=== PATIENT | male | born 1955 | race Caucasian/White ===

== ENCOUNTER → 2017-07-03 | Outpatient (CLI) | payer OTHER ==
[~2017-07-03] VITALS: Ht 180.3 cm; Wt 103.4 kg
[~2017-07-03] MED LIST: ATOR20TA50 PO; CLOP75TA41 PO; LIS10T PO
== END | disposition home or self-care (01) ==
LOC: Rad HDHVI 07:45
PROVIDERS: ATTEND Internal Medicine Cardiovascular Disease
DX: I25.119 Atherosclerotic heart disease of native coronary artery with unspecified angina pectoris (principal); R06.01 Orthopnea; I10 Essential (primary) hypertension; E78.00 Pure hypercholesterolemia, unspecified; I25.2 Old myocardial infarction; Z82.49 Family history of ischemic heart disease and other diseases of the circulatory system
CPT/HCPCS: 93306

== ENCOUNTER → 2018-09-22 | Outpatient (CLI) | payer OTHER ==
[~2018-09-22] VITALS: Ht 180.3 cm; Wt 102.1 kg
[~2018-09-22] MED LIST changes: +B-COCAP36 OR; +CHOL500023 PO; +CYAN50008 PO; +GLUC500T48 PO; +MAGN500T17 PO; +[UNRECOGNIZED DRUG - CODE] PO
== END | disposition home or self-care (01) ==
LOC: Rad HDHVI 07:54
PROVIDERS: ATTEND Internal Medicine
DX: I08.1 Rheumatic disorders of both mitral and tricuspid valves (principal); I10 Essential (primary) hypertension; E78.5 Hyperlipidemia, unspecified; K40.90 Unilateral inguinal hernia, without obstruction or gangrene, not specified as recurrent; I20.9 Angina pectoris, unspecified; Z86.79 Personal history of other diseases of the circulatory system
CPT/HCPCS: 78452; 93017; 93306; 96374; A9500

== ENCOUNTER → 2019-11-03 | Outpatient (CLI) | payer OTHER ==
[2019-11-03 09:40] LABS: Urine WBC None Seen /hpf (0 - 3)
[2019-11-03 09:43] LABS: Basophils # (auto) 0.1 uL; Basophils % (auto) 1.1 % (0.0-2.0); Eosinophils # (auto) 0.2 uL; Hemoglobin 15.2 g/dL (13.5-17.5); Lymphocytes # (auto) 2.1 uL; Lymphocytes % (auto) 32.8 % (10.0-50.0); Mean Corpuscular Hemoglobin 28.1 pg (28.0-32.0); Mean Corpuscular Hgb Conc. 33.8 g/dL (32.0-36.0); Mean Corpuscular Volume 83.2 fL (80.0-100.0); Monocytes # (auto) 0.4 uL; Neutrophils # (auto) 3.6 uL; Neutrophils % (auto) 56.1 % (37.0-80.0); Nucleated Red Blood Cells % 0.2 %; Platelet Count (auto) 310 10^3/uL (140-450); Red Blood Cells 5.41 10^6/uL (4.5-5.90); White Blood Cell 6.5 10^3/uL (4.4-10.8)
[2019-11-03 09:49] LABS: Urine Bacteria NONE SEEN /hpf (None Seen); Urine Blood Negative /uL (Negative); Urine Mucus FEW (None Seen)
[2019-11-03 10:08] LABS: Calcium 9.2 mg/dL (8.5-10.1); Potassium 4.2 mmol/L (3.5-5.1)
[2019-11-03 10:14] LABS: BUN/Creatinine Ratio 11.5; Bilirubin, Total 0.4 mg/dL (0.2-1.0); Total Protein 7.7 g/dL (6.4-8.2)
[2019-11-03 10:56] LABS: Prostate Specific Antigen 1.03 ng/mL (0.0-4.0)
== END | disposition home or self-care (01) ==
LOC: LAB 09:24
PROVIDERS: ATTEND Internal Medicine
DX: E11.9 Type 2 diabetes mellitus without complications (principal); I11.0 Hypertensive heart disease with heart failure; I50.9 Heart failure, unspecified; E78.5 Hyperlipidemia, unspecified; Z21 Asymptomatic human immunodeficiency virus [HIV] infection status
CPT/HCPCS: 36415; 80053; 80061; 81001; 82043; 82306; 82607; 83036; 84153; 85025

== ENCOUNTER → 2019-11-11 | Outpatient (CLI) | payer OTHER | END | disposition home or self-care (01) | LOC: XY 08:54 | PROVIDERS: ATTEND Internal Medicine | DX: I50.9 Heart failure, unspecified (principal) | CPT/HCPCS: 93886 ==

== ENCOUNTER → 2019-12-01 | Outpatient (CLI) | payer OTHER | END | disposition home or self-care (01) | LOC: XYW 07:44 | PROVIDERS: ATTEND Internal Medicine | DX: I51.7 Cardiomegaly (principal); I50.9 Heart failure, unspecified | CPT/HCPCS: 93306 ==

== ENCOUNTER → 2019-12-06 | Day surgery (SDC) | payer OTHER ==
[2019-12-03 10:29] LABS: Basophils # (auto) 0.1 uL; Basophils % (auto) 0.9 % (0.0-2.0); Eosinophils # (auto) 0.1 uL; Eosinophils % (auto) 2.2 % (0.0-7.0); Hematocrit 44.2 % (41.0-53.0); Hemoglobin 14.9 g/dL (13.5-17.5); Lymphocytes # (auto) 2.1 uL; Lymphocytes % (auto) 33.5 % (10.0-50.0); Mean Corpuscular Hemoglobin 28.4 pg (28.0-32.0); Mean Corpuscular Hgb Conc. 33.8 g/dL (32.0-36.0); Monocytes # (auto) 0.4 uL; Monocytes % (auto) 6.7 % (0.0-12.0); Neutrophils # (auto) 3.6 uL; Neutrophils % (auto) 56.7 % (37.0-80.0); Nucleated Red Blood Cells % 0.1 %; Platelet Count (auto) 276 10^3/uL (140-450); Red Blood Cells 5.26 10^6/uL (4.5-5.90); Red Cell Distribution Width 13.7 % (11.8-14.3); White Blood Cell 6.4 10^3/uL (4.4-10.8)
[2019-12-03 10:40] LABS: INR 1.07 (0.9-1.15); Partial Thromboplastin Time 25.6 sec (23.64-32.05)
[~2019-12-06] VITALS: Ht 180.3 cm; Wt 108.9 kg
[~2019-12-06] MED LIST changes: -CYAN50008 PO; +SODIUM CHLORIDE LOCK 10 ML ONE; -[UNRECOGNIZED DRUG - CODE] PO; +diphenhdrAMINE HCL 50 MG/1 ML VL ONE
[2019-12-06] MEDS: MIDAZOLAM HCL 5 MG/ML-1ML VIAL ONE ×2 (10:07→10:10)
[2019-12-06] MEDS: fentaNYL CITRATE 100 MCG/2 ML VL ONE ×2 (10:07→10:10)
[2019-12-06 10:36] VITALS: BP 127/72
== END | disposition home or self-care (01) ==
LOC: GI 08:23
PROVIDERS: ATTEND Internal Medicine Gastroenterology
DX: Z12.11 Encounter for screening for malignant neoplasm of colon (principal); K57.30 Diverticulosis of large intestine without perforation or abscess without bleeding; E66.9 Obesity, unspecified; Z79.01 Long term (current) use of anticoagulants; Z95.818 Presence of other cardiac implants and grafts; Z79.899 Other long term (current) drug therapy; Z98.890 Other specified postprocedural states; Z79.82 Long term (current) use of aspirin; Z87.891 Personal history of nicotine dependence; Z68.33 Body mass index [BMI] 33.0-33.9, adult
CPT/HCPCS: 36415; 45378; 85025; 85610; 85730; J1200; J2250; J3010; J7030; 99152

== ENCOUNTER → 2020-02-18 | Outpatient (CLI) | payer OTHER ==
[~2020-02-18] VITALS: Ht 180.3 cm; Wt 111.1 kg
[~2020-02-18] MED LIST changes: -SODIUM CHLORIDE LOCK 10 ML ONE; -diphenhdrAMINE HCL 50 MG/1 ML VL ONE
== END | disposition home or self-care (01) ==
LOC: Rad HDHVI 07:50
PROVIDERS: ATTEND Internal Medicine
DX: I10 Essential (primary) hypertension (principal); R07.9 Chest pain, unspecified; E78.5 Hyperlipidemia, unspecified; Z95.5 Presence of coronary angioplasty implant and graft
CPT/HCPCS: 78452; 93017; 96374; A9500

== ENCOUNTER → 2020-02-29 | Outpatient (CLI) | payer OTHER ==
[2020-02-29 10:33] LABS: Urine WBC None Seen /hpf (0 - 3)
[2020-02-29 10:36] LABS: Basophils # (auto) 0 10 ^3/uL (0-0.2); Basophils % (auto) 0.5 % (0.0-2.0); Eosinophils # (auto) 0.2 10 ^3/uL (0-0.8); Eosinophils % (auto) 2.7 % (0.0-7.0); Hemoglobin 15.4 g/dL (13.5-17.5); Lymphocytes # (auto) 2.1 10 ^3/uL (0.4-5.4); Lymphocytes % (auto) 28.6 % (10.0-50.0); Mean Corpuscular Hemoglobin 28.2 pg (28.0-32.0); Mean Corpuscular Hgb Conc. 33.5 g/dL (32.0-36.0); Mean Corpuscular Volume 84.2 fL (80.0-100.0); Monocytes # (auto) 0.6 10 ^3/uL (0-1.3); Monocytes % (auto) 7.6 % (0.0-12.0); Neutrophils # (auto) 4.5 10 ^3/uL (1.6-8.6); Neutrophils % (auto) 60.6 % (37.0-80.0); Nucleated Red Blood Cells % 0.1 %; Platelet Count (auto) 282 10^3/uL (140-450); Red Blood Cells 5.47 10^6/uL (4.5-5.90); Red Cell Distribution Width 13.8 % (11.8-14.3); White Blood Cell 7.4 10^3/uL (4.4-10.8)
[2020-02-29 10:42] LABS: Urine Bacteria NONE SEEN /hpf (None Seen); Urine Blood Negative /uL (Negative); Urine Specific Gravity 1.011 (1.001-1.035)
[2020-02-29 11:16] LABS: Free T4 (Free Thyroxine) 1.03 ng/dL (0.89-1.76); Prostate Specific Antigen 1.11 ng/mL (0.0-4.0)
[2020-02-29 11:39] LABS: Potassium 4.2 mmol/L (3.5-5.1)
[2020-02-29 12:03] LABS: Albumin 3.9 g/dL (3.4-5.0); BUN/Creatinine Ratio 15.1; Bilirubin, Total 0.4 mg/dL (0.2-1.0); Calcium 8.9 mg/dL (8.5-10.1); Total Protein 7.9 g/dL (6.4-8.2)
== END | disposition home or self-care (01) ==
LOC: LAB 10:13
PROVIDERS: ATTEND Internal Medicine
DX: Z00.00 Encounter for general adult medical examination without abnormal findings (principal); C61 Malignant neoplasm of prostate; E03.9 Hypothyroidism, unspecified; K90.9 Intestinal malabsorption, unspecified; E29.1 Testicular hypofunction; N39.0 Urinary tract infection, site not specified; D51.9 Vitamin B12 deficiency anemia, unspecified; Z79.899 Other long term (current) drug therapy
CPT/HCPCS: 36415; 80053; 80061; 81001; 82306; 82607; 83036; 84153; 84403; 84439; 84443; 85025

== ENCOUNTER → 2020-05-16 | Outpatient (CLI) | payer OTHER | END | disposition home or self-care (01) | LOC: LAB 07:25 | PROVIDERS: ATTEND Internal Medicine | DX: E11.9 Type 2 diabetes mellitus without complications (principal); E78.5 Hyperlipidemia, unspecified | CPT/HCPCS: 36415; 83036 ==

== ENCOUNTER → 2020-11-28 | Outpatient (CLI) | payer OTHER ==
[~2020-11-28] MED LIST changes: -CLOP75TA41 PO; +CLOP75TA70 PO
[2020-11-28 10:15] LABS: Urine WBC None Seen /hpf (0 - 3)
[2020-11-28 10:21] LABS: Basophils # (auto) 0 10 ^3/uL (0-0.2); Basophils % (auto) 0.5 % (0.0-2.0); Eosinophils # (auto) 0.1 10 ^3/uL (0-0.8); Eosinophils % (auto) 1.4 % (0.0-7.0); Hematocrit 45.6 % (41.0-53.0); Hemoglobin 15.3 g/dL (13.5-17.5); Lymphocytes # (auto) 1.7 10 ^3/uL (0.4-5.4); Lymphocytes % (auto) 30.6 % (10.0-50.0); Mean Corpuscular Hemoglobin 28.6 pg (28.0-32.0); Mean Corpuscular Hgb Conc. 33.6 g/dL (32.0-36.0); Mean Corpuscular Volume 85.1 fL (80.0-100.0); Monocytes # (auto) 0.4 10 ^3/uL (0-1.3); Monocytes % (auto) 7.3 % (0.0-12.0); Neutrophils # (auto) 3.4 10 ^3/uL (1.6-8.6); Neutrophils % (auto) 60.2 % (37.0-80.0); Nucleated Red Blood Cells % 0.1 %; Platelet Count (auto) 276 10^3/uL (140-450); Red Blood Cells 5.36 10^6/uL (4.5-5.90); White Blood Cell 5.7 10^3/uL (4.4-10.8)
[2020-11-28 10:24] LABS: Urine Bacteria NONE SEEN /hpf (None Seen); Urine Blood Negative /uL (Negative); Urine Specific Gravity 1.022 (1.001-1.035)
[2020-11-28 10:59] LABS: Free T4 (Free Thyroxine) 1.07 ng/dL (0.89-1.76); Prostate Specific Antigen 0.92 ng/mL (0.0-4.0)
[2020-11-28 11:05] LABS: Potassium 4.2 mmol/L (3.5-5.1)
[2020-11-28 11:21] LABS: Albumin 3.9 g/dL (3.4-5.0); BUN/Creatinine Ratio 17.5; Bilirubin, Direct 0.2 mg/dL (0-0.2); Bilirubin, Total 0.5 mg/dL (0.2-1.0); Calcium 8.8 mg/dL (8.5-10.1); Total Protein 7.7 g/dL (6.4-8.2)
== END | disposition home or self-care (01) ==
LOC: LAB 10:03
PROVIDERS: ATTEND Internal Medicine
DX: C61 Malignant neoplasm of prostate (principal); D51.3 Other dietary vitamin B12 deficiency anemia; I10 Essential (primary) hypertension; E11.9 Type 2 diabetes mellitus without complications; E55.9 Vitamin D deficiency, unspecified; D64.9 Anemia, unspecified; R00.2 Palpitations; R53.1 Weakness; R30.0 Dysuria
CPT/HCPCS: 36415; 80053; 80061; 80076; 81001; 82306; 82607; 83036; 84153; 84403; 84439; 84443; 85025

== ENCOUNTER → 2021-05-18 | Outpatient (CLI) | payer OTHER | END | disposition home or self-care (01) | LOC: LAB 07:29 | PROVIDERS: ATTEND Internal Medicine | DX: Z12.11 Encounter for screening for malignant neoplasm of colon (principal) | CPT/HCPCS: 82270 ==

== ENCOUNTER → 2021-11-06 | Outpatient (CLI) | payer OTHER ==
[2021-11-06 09:01] LABS: Cholesterol 184 mg/dL (< 200); HDL Cholesterol 58 mg/dL (40-59); LDL Cholesterol 104 mg/dL (< 100); Triglycerides 111 mg/dL (< 150)
== END | disposition home or self-care (01) ==
LOC: LAB 07:19
PROVIDERS: ATTEND Internal Medicine
DX: E11.9 Type 2 diabetes mellitus without complications (principal); I10 Essential (primary) hypertension; E78.5 Hyperlipidemia, unspecified
CPT/HCPCS: 36415; 80061; 82043; 83036

== ENCOUNTER → 2021-12-04 | Outpatient (CLI) | payer OTHER | END | disposition home or self-care (01) | LOC: XY 10:38 | PROVIDERS: ATTEND Internal Medicine | DX: M25.571 Pain in right ankle and joints of right foot (principal) | CPT/HCPCS: 93926 ==

== ENCOUNTER → 2022-11-04 | Outpatient (CLI) | payer OTHER ==
[2022-11-04 07:17] LABS: Urine WBC None Seen /hpf (0 - 3)
[2022-11-04 07:42] LABS: Basophils # (auto) 0 10 ^3/uL (0-0.2); Basophils % (auto) 0.6 % (0.0-2.0); Eosinophils # (auto) 0.1 10 ^3/uL (0-0.8); Eosinophils % (auto) 2.2 % (0.0-7.0); Hematocrit 45.2 % (41.0-53.0); Hemoglobin 15.1 g/dL (13.5-17.5); Lymphocytes # (auto) 2.3 10 ^3/uL (0.4-5.4); Lymphocytes % (auto) 34.2 % (10.0-50.0); Mean Corpuscular Hemoglobin 27.8 pg (28.0-32.0); Mean Corpuscular Hgb Conc. 33.4 g/dL (32.0-36.0); Mean Corpuscular Volume 83.2 fL (80.0-100.0); Monocytes # (auto) 0.5 10 ^3/uL (0-1.3); Monocytes % (auto) 7.1 % (0.0-12.0); Neutrophils # (auto) 3.8 10 ^3/uL (1.6-8.6); Neutrophils % (auto) 55.9 % (37.0-80.0); Red Blood Cells 5.44 10^6/uL (4.5-5.90); Red Cell Distribution Width 13.8 % (11.8-14.3); White Blood Cell 6.9 10^3/uL (4.4-10.8)
[2022-11-04 08:04] LABS: Urine Bacteria NONE SEEN /hpf (None Seen); Urine Blood Negative /uL (Negative); Urine Specific Gravity 1.004 (1.001-1.035)
[2022-11-04 08:14] LABS: Albumin 4.1 g/dL (3.4-5.0); Potassium 4.2 mmol/L (3.5-5.1)
[2022-11-04 08:21] LABS: BUN/Creatinine Ratio 10.5; Bilirubin, Total 0.5 mg/dL (0.2-1.0); Total Protein 7.7 g/dL (6.4-8.2)
== END | disposition home or self-care (01) ==
LOC: LAB 07:10
PROVIDERS: ATTEND Internal Medicine
DX: Z12.11 Encounter for screening for malignant neoplasm of colon (principal); I10 Essential (primary) hypertension; E78.5 Hyperlipidemia, unspecified; R73.03 Prediabetes
CPT/HCPCS: 36415; 80053; 80061; 81001; 82043; 83036; 85025; 87086

== ENCOUNTER → 2023-04-17 | Outpatient (CLI) | payer OTHER | END | disposition home or self-care (01) | LOC: LAB 07:04 | PROVIDERS: ATTEND Internal Medicine | DX: E11.9 Type 2 diabetes mellitus without complications (principal) | CPT/HCPCS: 36415; 83036 ==

== ENCOUNTER → 2023-11-26 | Outpatient (CLI) | payer OTHER | END | disposition home or self-care (01) | LOC: XYW 09:32 | PROVIDERS: ATTEND Internal Medicine | DX: I65.22 Occlusion and stenosis of left carotid artery (principal); R55 Syncope and collapse | CPT/HCPCS: 93886 ==

== ENCOUNTER → 2023-11-27 | Outpatient (CLI) | payer OTHER | END | disposition home or self-care (01) | LOC: XYW 09:24 | PROVIDERS: ATTEND Internal Medicine | DX: I51.89 Other ill-defined heart diseases (principal); R55 Syncope and collapse | CPT/HCPCS: 93306 ==

== ENCOUNTER 2024-02-26 08:00 | Day surgery (SDC) | payer OTHER ==
[2024-02-23 10:50] LABS: Basophils # (auto) 0.1 10 ^3/uL (0-0.2); Basophils % (auto) 0.7 % (0.0-2.0); Eosinophils # (auto) 0.3 10 ^3/uL (0-0.8); Eosinophils % (auto) 3.5 % (0.0-7.0); Hematocrit 47.7 % (41.0-53.0); Hemoglobin 15.7 g/dL (13.5-17.5); Lymphocytes # (auto) 2.4 10 ^3/uL (0.4-5.4); Lymphocytes % (auto) 29.3 % (10.0-50.0); Mean Corpuscular Hemoglobin 27.5 pg (28.0-32.0); Mean Corpuscular Hgb Conc. 32.8 g/dL (32.0-36.0); Mean Corpuscular Volume 83.7 fL (80.0-100.0); Monocytes # (auto) 0.6 10 ^3/uL (0-1.3); Monocytes % (auto) 7.7 % (0.0-12.0); Neutrophils # (auto) 4.8 10 ^3/uL (1.6-8.6); Neutrophils % (auto) 58.8 % (37.0-80.0); Nucleated Red Blood Cells % 0.1 %; Red Blood Cells 5.71 10^6/uL (4.5-5.90); Red Cell Distribution Width 14.1 % (11.8-14.3); White Blood Cell 8.1 10^3/uL (4.4-10.8)
[2024-02-23 11:05] LABS: INR 1.05 (0.9-1.15); Partial Thromboplastin Time 26.7 SEC (24.5-34.5); Prothrombin Time 11.1 sec (9.3-11.8)
[2024-02-23 11:22] LABS: Alanine Aminotransferase 49 U/L (7-40); Albumin 4.6 g/dL (3.2-4.8); Alkaline Phosphatase 77 U/L (46-116); Anion Gap 9 (5-15); Aspartate Aminotransferase 34 U/L (13-40); BUN/Creatinine Ratio 6.5 (10.0-20.0); Bilirubin, Total 0.5 mg/dL (0.2-1.0); Blood Urea Nitrogen 6 mg/dL (9-23); Calcium 9.9 mg/dL (8.5-10.1); Carbon Dioxide 26 mmol/L (20-30); Chloride 106 mmol/L (98-107); Glucose 98 mg/dL (74-106); Potassium 4.1 mmol/L (3.5-5.1); Sodium 141 mmol/L (136-145); Total Protein 7.3 g/dL (5.7-8.2)
[~2024-02-26] VITALS: Ht 180.3 cm; Wt 104.3 kg
[~2024-02-26 08:00] MED LIST changes: +ASPI-543 PO; -B-COCAP36 OR
[2024-02-26] MEDS ORDERED: IODIXANOL 320MG/ML 100ML BTL IV ONE (08:13)
[2024-02-26] MEDS ORDERED: IOHEXOL 350 MG/ML 100ML IJ ONE (08:13)
[2024-02-26] MEDS ORDERED: LIDOCAINE 2%HCL (LOCAL ANESTH.) INJ 20ML MDV ONE (08:13)
[2024-02-26] MEDS ORDERED: HEPARIN SODIUM (PORCINE) 5000 UNITS/ML 1ML VIAL ONE (09:04)
[2024-02-26] MEDS ORDERED: VERAPAMIL 2.5MG/ML INJ 2ML VIAL IV ONE (09:04)
[2024-02-26] MEDS ORDERED: MIDAZOLAM HCL 2MG/2ML 2ml VIAL (1mg/ml) ONE (09:05)
[2024-02-26] MEDS ORDERED: fentaNYL CITRATE 100 MCG/2 ML VL ONE (09:05)
== END 2024-02-26 11:35 | disposition home or self-care (01) ==
LOC: CATH 08:00
PROVIDERS: ATTEND Student in an Organized Health Care Education/Training Program
DX: R07.89 Other chest pain (principal); I25.10 Atherosclerotic heart disease of native coronary artery without angina pectoris; R06.02 Shortness of breath; I11.9 Hypertensive heart disease without heart failure; I25.9 Chronic ischemic heart disease, unspecified; E78.5 Hyperlipidemia, unspecified; G89.4 Chronic pain syndrome; M19.90 Unspecified osteoarthritis, unspecified site; E66.9 Obesity, unspecified; Z68.32 Body mass index [BMI] 32.0-32.9, adult; Z79.82 Long term (current) use of aspirin; Z79.899 Other long term (current) drug therapy; Z95.5 Presence of coronary angioplasty implant and graft; Z87.891 Personal history of nicotine dependence
CPT/HCPCS: 36415; 80053; 85025; 85610; 85730; 93458; C1894; J1644; J2250; J3010; J7030; Q9967; 99152

== ENCOUNTER → 2024-05-12 | Outpatient (CLI) | payer OTHER ==
[2024-05-12 08:12] LABS: Basophils # (auto) 0 10 ^3/uL (0-0.2); Basophils % (auto) 0.5 % (0.0-2.0); Eosinophils # (auto) 0.2 10 ^3/uL (0-0.8); Eosinophils % (auto) 1.9 % (0.0-7.0); Hematocrit 44.2 % (41.0-53.0); Hemoglobin 15.1 g/dL (13.5-17.5); Lymphocytes # (auto) 2.3 10 ^3/uL (0.4-5.4); Lymphocytes % (auto) 28.2 % (10.0-50.0); Mean Corpuscular Hemoglobin 28.4 pg (28.0-32.0); Mean Corpuscular Hgb Conc. 34.2 g/dL (32.0-36.0); Mean Corpuscular Volume 83.2 fL (80.0-100.0); Monocytes # (auto) 0.6 10 ^3/uL (0-1.3); Monocytes % (auto) 6.8 % (0.0-12.0); Neutrophils # (auto) 5.1 10 ^3/uL (1.6-8.6); Neutrophils % (auto) 62.6 % (37.0-80.0); Nucleated Red Blood Cells % 0.1 %; Red Blood Cells 5.32 10^6/uL (4.5-5.90); Red Cell Distribution Width 13.9 % (11.8-14.3); White Blood Cell 8.1 10^3/uL (4.4-10.8)
== END | disposition home or self-care (01) ==
LOC: LAB 07:55
PROVIDERS: ATTEND Internal Medicine
DX: Z12.11 Encounter for screening for malignant neoplasm of colon (principal); R35.0 Frequency of micturition
CPT/HCPCS: 36415; 82270; 84153; 85025

== ENCOUNTER → 2024-05-24 | Outpatient (CLI) | payer OTHER ==
[2024-05-24 06:59] LABS: Basophils # (auto) 0 10 ^3/uL (0-0.2); Basophils % (auto) 0.5 % (0.0-2.0); Eosinophils # (auto) 0.3 10 ^3/uL (0-0.8); Eosinophils % (auto) 3.4 % (0.0-7.0); Hematocrit 42.3 % (41.0-53.0); Hemoglobin 14.4 g/dL (13.5-17.5); Lymphocytes # (auto) 2.7 10 ^3/uL (0.4-5.4); Lymphocytes % (auto) 35.9 % (10.0-50.0); Mean Corpuscular Hemoglobin 28.3 pg (28.0-32.0); Mean Corpuscular Volume 83.1 fL (80.0-100.0); Monocytes # (auto) 0.6 10 ^3/uL (0-1.3); Monocytes % (auto) 7.6 % (0.0-12.0); Neutrophils # (auto) 3.9 10 ^3/uL (1.6-8.6); Neutrophils % (auto) 52.6 % (37.0-80.0); Nucleated Red Blood Cells % 0.1 %; Red Blood Cells 5.09 10^6/uL (4.5-5.90); White Blood Cell 7.4 10^3/uL (4.4-10.8)
== END | disposition home or self-care (01) ==
LOC: LAB 06:32
PROVIDERS: ATTEND Internal Medicine
DX: R19.5 Other fecal abnormalities (principal)
CPT/HCPCS: 36415; 85025

== ENCOUNTER → 2024-06-14 | Outpatient (CLI) | payer OTHER ==
[2024-06-14 09:16] LABS: Basophils # (auto) 0 10 ^3/uL (0-0.2); Basophils % (auto) 0.6 % (0.0-2.0); Eosinophils # (auto) 0.1 10 ^3/uL (0-0.8); Eosinophils % (auto) 1.7 % (0.0-7.0); Hematocrit 44.4 % (41.0-53.0); Hemoglobin 15.4 g/dL (13.5-17.5); Lymphocytes # (auto) 2.5 10 ^3/uL (0.4-5.4); Lymphocytes % (auto) 31.4 % (10.0-50.0); Mean Corpuscular Hemoglobin 29.1 pg (28.0-32.0); Mean Corpuscular Hgb Conc. 34.8 g/dL (32.0-36.0); Mean Corpuscular Volume 83.6 fL (80.0-100.0); Monocytes # (auto) 0.5 10 ^3/uL (0-1.3); Monocytes % (auto) 6.6 % (0.0-12.0); Neutrophils # (auto) 4.7 10 ^3/uL (1.6-8.6); Neutrophils % (auto) 59.7 % (37.0-80.0); Platelet Count (auto) 279 10^3/uL (140-450); Red Blood Cells 5.31 10^6/uL (4.5-5.90); Red Cell Distribution Width 14.2 % (11.8-14.3); White Blood Cell 7.9 10^3/uL (4.4-10.8)
== END | disposition home or self-care (01) ==
LOC: LAB 08:57
PROVIDERS: ATTEND Internal Medicine
DX: R92.2 Inconclusive mammogram (principal)
CPT/HCPCS: 36415; 85025

== ENCOUNTER → 2024-11-09 | Outpatient (CLI) | payer OTHER ==
[2024-11-09 08:03] LABS: Basophils # (auto) 0 10 ^3/uL (0-0.2); Basophils % (auto) 0.4 % (0.0-2.0); Eosinophils # (auto) 0.2 10 ^3/uL (0-0.8); Eosinophils % (auto) 2.2 % (0.0-7.0); Hematocrit 45.2 % (41.0-53.0); Hemoglobin 15.2 g/dL (13.5-17.5); Lymphocytes # (auto) 2.4 10 ^3/uL (0.4-5.4); Lymphocytes % (auto) 31.2 % (10.0-50.0); Mean Corpuscular Hemoglobin 28.3 pg (28.0-32.0); Mean Corpuscular Hgb Conc. 33.7 g/dL (32.0-36.0); Mean Corpuscular Volume 83.8 fL (80.0-100.0); Monocytes # (auto) 0.5 10 ^3/uL (0-1.3); Monocytes % (auto) 6.6 % (0.0-12.0); Neutrophils # (auto) 4.5 10 ^3/uL (1.6-8.6); Neutrophils % (auto) 59.6 % (37.0-80.0); Platelet Count (auto) 288 10^3/uL (140-450); Red Blood Cells 5.39 10^6/uL (4.5-5.90); Red Cell Distribution Width 14.1 % (11.8-14.3); White Blood Cell 7.5 10^3/uL (4.4-10.8)
[2024-11-09 08:23] LABS: Alanine Aminotransferase 27 U/L (7-40); Alkaline Phosphatase 75 U/L (46-116); Anion Gap 9 (5-15); Aspartate Aminotransferase 18 U/L (13-40); BUN/Creatinine Ratio 15.5 (10.0-20.0); Blood Urea Nitrogen 15 mg/dL (9-23); Calcium 10.1 mg/dL (8.7-10.4); Carbon Dioxide 26 mmol/L (20-31); Chloride 104 mmol/L (98-107); Cholesterol 139 mg/dL (< 200); HDL Cholesterol 43 mg/dL (40-59); LDL Cholesterol 77 mg/dL (< 100); Potassium 4.4 mmol/L (3.5-5.1); Sodium 139 mmol/L (136-145); Triglycerides 142 mg/dL (< 150)
[2024-11-09 08:24] LABS: Bilirubin, Total 0.6 mg/dL (0.2-1.0); Total Protein 7.4 g/dL (5.7-8.2)
[2024-11-09 08:25] LABS: Albumin 4.9 g/dL (3.2-4.8); Glucose 107 mg/dL (74-106)
[2024-11-09 09:35] LABS: Creatinine, Urine 158.29 mg/dL (30.0-125.0)
[2024-11-09 09:37] LABS: Microalb/Creat Ratio, Urine < 3.0
[2024-11-09 09:40] LABS: Micro Albumin < 3.0 mg/L (<30.0)
== END | disposition home or self-care (01) ==
LOC: LAB 07:23
PROVIDERS: ATTEND Internal Medicine
DX: I10 Essential (primary) hypertension (principal); E11.9 Type 2 diabetes mellitus without complications; E78.5 Hyperlipidemia, unspecified
CPT/HCPCS: 36415; 80053; 80061; 82043; 82570; 83036; 85025

== ENCOUNTER 2025-04-08 10:00 | Day surgery (SDC) | payer OTHER ==
[2025-04-06 09:06] LABS: Urine Bacteria None Seen /hpf (None Seen)
[2025-04-06 09:20] LABS: Basophils # (auto) 0.1 10 ^3/uL (0-0.2); Basophils % (auto) 0.8 % (0.0-2.0); Eosinophils # (auto) 0.1 10 ^3/uL (0-0.8); Eosinophils % (auto) 2.2 % (0.0-7.0); Hematocrit 43.7 % (41.0-53.0); Hemoglobin 14.7 g/dL (13.5-17.5); Lymphocytes % (auto) 30.2 % (10.0-50.0); Mean Corpuscular Hemoglobin 27.8 pg (28.0-32.0); Mean Corpuscular Hgb Conc. 33.7 g/dL (32.0-36.0); Mean Corpuscular Volume 82.3 fL (80.0-100.0); Monocytes # (auto) 0.5 10 ^3/uL (0-1.3); Monocytes % (auto) 7.6 % (0.0-12.0); Neutrophils # (auto) 3.9 10 ^3/uL (1.6-8.6); Neutrophils % (auto) 59.2 % (37.0-80.0); Nucleated Red Blood Cells % 0.1 %; Platelet Count (auto) 281 10^3/uL (140-450); Red Cell Distribution Width 13.8 % (11.8-14.3); White Blood Cell 6.6 10^3/uL (4.4-10.8)
[2025-04-06 09:22] LABS: Urine Blood Negative /uL (Negative); Urine Clarity Clear (Clear); Urine Color Light-Yellow (Yellow); Urine Protein, UAD Negative (Negative); Urine Specific Gravity 1.017 (1.001-1.035); Urine Squamous Epithelial Cell None Seen /hpf (<5); Urine Urobilinogen Normal (Negative); Urine WBC 1 /HPF (0-3); Urine pH 5.5 (5.0-9.0)
[2025-04-06 09:34] LABS: INR 1.04 (0.9-1.15); Partial Thromboplastin Time 27.3 SEC (24.5-34.5)
[2025-04-06 09:48] LABS: Alanine Aminotransferase 31 U/L (7-40); Albumin 4.6 g/dL (3.2-4.8); Alkaline Phosphatase 72 U/L (46-116); Anion Gap 10 (5-15); Aspartate Aminotransferase 22 U/L (<34); BUN/Creatinine Ratio 11.4 (10.0-20.0); Bilirubin, Total 0.5 mg/dL (0.2-1.0); Blood Urea Nitrogen 10 mg/dL (9-23); Calcium 9.7 mg/dL (8.7-10.4); Carbon Dioxide 25 mmol/L (20-31); Chloride 106 mmol/L (98-107); Potassium 4.3 mmol/L (3.5-5.1); Sodium 141 mmol/L (136-145); Total Protein 7.3 g/dL (5.7-8.2)
[2025-04-06 09:50] LABS: Glucose 108 mg/dL (74-106)
[~2025-04-08] VITALS: Ht 180.3 cm; Wt 104.3 kg
[~2025-04-08 10:00] MED LIST changes: -ASPI-543 PO; +B-COCAP36 OR; -GLUC500T48 PO; +MELA3TAB27 PO; +MISC1TAB27 PO; +MISC450C OR; +MULT-195 OR; +POTA-36 PO
[2025-04-08] MEDS ORDERED: MIDAZOLAM HCL 2MG/2ML 2ml VIAL (1mg/ml) ONE (12:17)
[2025-04-08] MEDS ORDERED: fentaNYL CITRATE 100 MCG/2 ML VL ONE (12:17)
[2025-04-08] MEDS: LIDOCAINE VISCOUS 2% 15ML UD ONE (12:18)
[2025-04-08] MEDS ORDERED: DexAMETHasone SOD PHOS 10MG/1ML VIAL INJ ONE (12:26)
[2025-04-08] MEDS ORDERED: PROPOFOL 10 MG/ML 20 ML IV ONE (12:28)
[2025-04-08 12:35] VITALS: PULSE 99; RESP 18; O2SAT 99
[2025-04-08 12:50] VITALS: BP 137/73; PULSE 78; RESP 18; O2SAT 92
--- NOTE | 2025-04-08 12:51 | DVHOP2 ---
Operative Report DATE OF OPERATION: 04/08/25 PROCEDURE: Upper Endoscopy with the biopsy PREOPERATIVE INDICATION: The patient is a 69 -year-old male undergoing endoscopy for heme-positive stools POSTOPERATIVE DIAGNOSES: 1. 1 cm sliding-type hiatal hernia with grade a erosive esophagitis 2. Minimal gastritis otherwise normal examination up to the 3rd part of the duodenal PROCEDURE PERFORMED BY: Dandre Nazario GI NURSE: Pooja SCOPE: Olympus videoendoscope. ASA CLASS: 3. PREOPERATIVE MEDICATIONS: Dr. May Gresham PROCEDURE IN DETAIL: After obtaining an informed consent, the patient was placed on left lateral decubitus position. The patient was then sedated with the above medications. A bite block was placed between his teeth. The endoscope was then passed through the oropharynx, into the esophagus, and through the stomach and pylorus up to the second and third part of the duodenum. The endoscope was then withdrawn. Second and 3rd part of the duodenum and the duodenal bulb were normal. Biopsies were obtained The pre-pyloric area antrum and body showed minimal gastritis. Gastric biopsies were obtained. Retroflexion the fundus cardia and angularis were normal. The endoscope was then withdrawn into the distal esophagus Patient had a 0.5-1 cm sliding-type hiatal hernia with minimal grade a erosive esophagitis. GE junction biopsies were obtained Distal and proximal esophagus and oropharynx were unremarkable The patient tolerated the procedure well without difficulty. COMPLICATIONS : None SPECIMENS: Duodenal Biopsies Gastric biopsies GE junction biopsies DISPOSITION: Stable D/C to home PLAN: 1. Await for biopsy result 2. Will place pt on Protonix 40 mg p.o. daily 3. Resume GI soft diet advance as tolerated 4. Avoid aspirin NSAIDs smoking alcohol 5. Outpatient follow up with me in 4-6 weeks to review results and discuss further management DANDRE NAZARIO MD Apr 08, 2025 12:51
== END 2025-04-08 13:10 | disposition home or self-care (01) ==
LOC: GI 10:00
PROVIDERS: ATTEND Internal Medicine Gastroenterology
DX: R19.5 Other fecal abnormalities (principal); K22.10 Ulcer of esophagus without bleeding; K29.70 Gastritis, unspecified, without bleeding; K44.9 Diaphragmatic hernia without obstruction or gangrene
CPT/HCPCS: 36415; 43239; 80053; 81001; 85025; 85610; 85730; 88305; 88312; 88342; J1100; J2250; J2704; J3010; J7030

== ENCOUNTER 2025-05-17 06:42 | Outpatient (CLI) | payer OTHER ==
[2025-05-17 07:19] LABS: Anion Gap 9 (5-15); Carbon Dioxide 27 mmol/L (20-31); Chloride 103 mmol/L (98-107); Potassium 4.7 mmol/L (3.5-5.1); Sodium 139 mmol/L (136-145)
[2025-05-17 07:23] LABS: Calcium 10.6 mg/dL (8.7-10.4)
[2025-05-17 07:25] LABS: BUN/Creatinine Ratio 17.2 (10.0-20.0); Blood Urea Nitrogen 17 mg/dL (9-23); Triglycerides 147 mg/dL (< 150)
[2025-05-17 07:27] LABS: Cholesterol 160 mg/dL (< 200); HDL Cholesterol 49 mg/dL (40-59)
[2025-05-17 07:31] LABS: Glucose 126 mg/dL (74-106)
== END 2025-05-17 17:00 | disposition home or self-care (01) ==
LOC: LAB 06:42
PROVIDERS: ATTEND Internal Medicine
DX: E11.9 Type 2 diabetes mellitus without complications (principal); Z12.5 Encounter for screening for malignant neoplasm of prostate; Z00.00 Encounter for general adult medical examination without abnormal findings
CPT/HCPCS: 36415; 80048; 80061; 83036; 84153

== ENCOUNTER 2025-09-05 08:28 | Outpatient (CLI) | payer OTHER ==
--- NOTE | 2025-09-07 17:09 | DVHSR ---
APPROVED REPORT EXAM: Two-dimensional and M-mode echocardiogram with Doppler and color Doppler. INDICATION Hypertension RISK FACTORS Obesity: Height: 71, Weight: 240 DIMENSIONS LVDd 4.6 (3.8-5.7cm) LA (2D) 2.7 (1.9-4.0cm) Aortic Root 3.4 (2.0-3.7cm) LVDs 3.2 (2.5-4.0cm) LA (MM) (1.9-4.0cm) Aortic Cusp Exc 1.6 (1.5-2.0cm) EF (%) 57.0 (55-70%) Rt. Atrium (1.9-4.0cm) Asc. Aorta cm IVSd 1.4 (0.7-1.1cm) RV (D) (1.8-2.4cm) PWd 1.4 (0.7-1.1cm) Mitral Valve Mitral Mitral Stenosis E wave 0.59m/s MV Mean GR. mmHg A wave 0.68m/s MV Peak GR. mmHg E/A ratio 0.9 2D MVA cm2 DECEL Time 260ms PRESS 1/2 Time ms Aortic Valve Aortic Valve Aortic Stenosis V1 1.22m/s AO Mean GR. 4mmHg V2 1.24m/s AO Peak GR. 6mmHg LVOT Diameter 2.3 (1.8-2.4cm) Doppler JAMILAH 4.09cm2 Pulmonic Valve V2 1.06m/s Tricuspid Valve RVSP 8mmHg Other Information Technically limited study due to body habitus. Conclusion Sinus rhythm. Concentric LVH. Valves are normal. EF 55-60% with normal RV function. Dopplers unremarkable. No pericardial effusion masses or vegetations
== END 2025-09-05 17:00 | disposition home or self-care (01) ==
LOC: XYW 08:28
PROVIDERS: ATTEND Internal Medicine
DX: I10 Essential (primary) hypertension (principal)
CPT/HCPCS: 93306